=== PATIENT | female | born 1990 | race African-American/Black ===

== ENCOUNTER 2017-03-26 19:31 | Emergency (ER) | payer SELFPAY ==
[~2017-03-26] VITALS: Ht 167.6 cm; Wt 95.0 kg
[2017-03-26] MEDS ORDERED: IBUPROFEN 600MG TABLET PO ONE (20:45)
[2017-03-26 21:39] VITALS: BP 138/83
== END 2017-03-26 21:42 | disposition home or self-care (01) ==
LOC: ER 20:15
DX: N76.4 Abscess of vulva (principal); M19.90 Unspecified osteoarthritis, unspecified site; E66.9 Obesity, unspecified; Z68.33 Body mass index [BMI] 33.0-33.9, adult; Z91.018 Allergy to other foods; Z88.1 Allergy status to other antibiotic agents
CPT/HCPCS: 81025; 99283